=== PATIENT | female | born 1935 | race Caucasian/White ===

== ENCOUNTER 2017-03-16 09:36 | Emergency (ER) | payer OTHER ==
[~2017-03-16] VITALS: Ht 154.9 cm; Wt 58.9 kg
[2017-03-16 11:32] LABS: BASOPHIL COUNT 0.1 K/uL (0-0.1); EOSINOPHIL (%) 0.4 % (0-5); HEMATOCRIT 44.7 % (36.0-46.0); IMMATURE GRANULOCYTE (%) 0.3 % (0.0-0.7); INSTRUMENT ABS NEUTROPHIL CT 8.9 K/uL; LYMPHOCYTE COUNT 1.4 K/uL (1.0-2.8); MCH 32.9 PG (29.0-34.0); MCHC 33.8 G/DL (30.0-36.0); MCV 97.4 FL (83-99); MEAN PLAT.VOLUME 8.8 uM^3 (9.5-12.4); MONOCYTE (%) 6.4 % (3-12); MONOCYTE COUNT 0.7 K/uL (0-0.8); NEUTROPHIL (%) 79.5 % (45-76); NEUTROPHIL COUNT 8.9 K/uL (1.8-6.4); PLATELET COUNT 267 K/uL (156-360); RBC DIS.WIDTH-CV 14.2 % (11.8-14.6); RBC DIS.WIDTH-SD 51.5 % (39-53); RED BLOOD COUNT 4.59 M/uL (3.80-5.20); WHITE BLOOD COUNT 11.2 K/uL (4.1-10.2)
[2017-03-16 11:54] LABS: CHLORIDE 102 mEq/L (99-109); POTASSIUM 4.7 mEq/L (3.7-5.4); SODIUM 139 mEq/L (136-147)
[2017-03-16 11:56] LABS: GLUCOSE 100 mg/dL (70-99)
[2017-03-16 11:57] LABS: ANION GAP 12 MEQ/L (2-14)
[2017-03-16 11:58] LABS: TOTAL BILIRUBIN 0.4 mg/dL (0.0-1.0)
[2017-03-16 11:59] LABS: ALKALINE PHOSPHATASE 105 IU/L (3-129)
[2017-03-16 12:00] LABS: GFR ESTIMATE (CALCULATED) 51 mL/min/
[2017-03-16 12:01] LABS: UREA NITROGEN (BUN) 13 mg/dL (9-23)
[2017-03-16] MEDS ORDERED: ULTRAM50 MG PO (14:01)
[2017-03-16 17:15] VITALS: BP 151/74
[2017-03-16] MEDS ORDERED: UNABLE TO OBTAIN (17:47)
== END 2017-03-16 17:49 | disposition home or self-care (01) ==
LOC: EME 09:36
PROVIDERS: Nurse Practitioner Family
DX: S82.832A Other fracture of upper and lower end of left fibula, initial encounter for closed fracture (principal); W10.9XXA Fall (on) (from) unspecified stairs and steps, initial encounter; Y92.008 Other place in unspecified non-institutional (private) residence as the place of occurrence of the external cause; E78.5 Hyperlipidemia, unspecified; I10 Essential (primary) hypertension; E03.9 Hypothyroidism, unspecified; F17.200 Nicotine dependence, unspecified, uncomplicated
CPT/HCPCS: 73590; 73600; 73610; 80053; 85025; 99281; 99285; G8978 GP CK; G8979 GP CI; G8987 GO CJ; G8988 CI

== ENCOUNTER → 2017-03-20 | Outpatient (CLI) | payer MEDICARE, OTHER ==
[~2017-03-20] MED LIST: ULTRAM50 MG PO; UNABLE TO OBTAIN
== END | disposition home or self-care (01) ==
LOC: CDC 14:28
DX: S82.842D Displaced bimalleolar fracture of left lower leg, subsequent encounter for closed fracture with routine healing (principal)
CPT/HCPCS: 93000

== ENCOUNTER 2017-03-30 11:39 | Day surgery (SDC) | payer OTHER ==
[~2017-03-30] VITALS: Ht 152.4 cm; Wt 58.0 kg
[~2017-03-30 11:39] MED LIST changes: +KLONOPIN1 MG PO; +LITE COAT ASPI325 M1 PO; +LO-DOSE ASPIRIN81 M2 PO; +PAXIL20 MG PO; +SYNTHROID50 MCG PO; +VALSARTAN80 MG PO
[2017-03-30 12:05] VITALS: BP 140/81
[2017-03-30 16:40] VITALS: BP 175/77
[2017-03-30 18:00] VITALS: BP 138/73
== END 2017-03-30 18:10 | disposition home or self-care (01) ==
LOC: SDC 11:39
PROC: 0QSK04Z Reposition Left Fibula with Internal Fixation Device, Open Approach (ICD-10-PCS; principal; 2017-03-30)
DX: S82.852A Displaced trimalleolar fracture of left lower leg, initial encounter for closed fracture (principal); W01.0XXA Fall on same level from slipping, tripping and stumbling without subsequent striking against object, initial encounter; Y93.89 Activity, other specified; Y92.000 Kitchen of unspecified non-institutional (private) residence as the place of occurrence of the external cause; Y99.9 Unspecified external cause status; I10 Essential (primary) hypertension; F32.9 Major depressive disorder, single episode, unspecified; Z82.49 Family history of ischemic heart disease and other diseases of the circulatory system; Z80.9 Family history of malignant neoplasm, unspecified; F17.210 Nicotine dependence, cigarettes, uncomplicated
CPT/HCPCS: 73610; 76000; C1713; J0131; J0690; J1100; J2405; J2710; J3010; S0020